=== PATIENT | male | born 1965 | race Caucasian/White ===

== ENCOUNTER → 2017-03-10 | Outpatient (CLI) | payer BC ==
--- NOTE | 2017-03-10 09:00 | PCM.PRNOTE ---
- Free Text/Narrative Note: Exercise MIBI Indication CP Sestamibi Tc99 25 MCi was given at the peak HR Patient was brought to the stress test lab in postabsorptive state verbal and paper consent was obtained from patient Vital signs at resting state blood pressure of 130/84with a heart rate of 99 EKG shows sinus rhythm no ST changes no Q waves Maximal heart rate of 172 and target heart rate is 145 Patient reached the target heart rate, completed stage III Terry protocol Peak blood pressure is 144/90 Total exercise time of 8.[address] changes with a peak heart rate no arrhythmia METS 10.1 No symptom of chest pain or feeling dizzy Impression Normal hemodynamics, normal chronotropic, adequate exercise capacity, negative for ischemia on EKG Plan Nuclear portion pending
--- NOTE | 2017-03-10 14:26 | NM ---
EXAMINATION: Nuclear medicine myocardial perfusion study with exercise stress test. HISTORY: Chest pain. PROCEDURE: Patient exercised according to Terry protocol for 8 minutes and 17 seconds and achieved maximal hear t rate of 172 beats per minute. Adequate exercise. Following intravenous administration of 25.9 mCi of technetium 99m sestamibi, stress SPECT images i ncluding gating imaging was performed. FINDINGS: Stress myocardial SPECT images demonstrates a trace decreased perfusion along the inferior wall from the base to midportion. In reviewing source images this is consistent with diaphragmatic attenuatio n. There is no definite perfusion defect. Review of gated images demonstrates normal wall motion, contractility and wall thickening. The left ventricular ejection fraction is 63 %. The left ventricular chamber size is normal. IMPRESSION: 1. No evidence of myocardial ischemia. 2. Normal ventricular chamber size and function with ejection fraction of 63 %.
== END | disposition home or self-care (01) ==
LOC: MW.NM 08:19
PROVIDERS: ATTEND Registered Nurse Emergency
DX: R07.9 Chest pain, unspecified (principal)
CPT/HCPCS: 78451; 78451-26; 93017; A9500